=== PATIENT | male | born 1970 | race Caucasian/White ===

== ENCOUNTER 2023-12-12 20:45 | Emergency (ER) | payer OTHER, BC ==
[2023-12-12] MEDS: Ibuprofen 400 MG Tab PO ONE (21:06)
== END 2023-12-12 23:32 | disposition home or self-care (01) ==
LOC: FB.ED 20:45
DX: S82.831A Other fracture of upper and lower end of right fibula, initial encounter for closed fracture (principal); K21.9 Gastro-esophageal reflux disease without esophagitis; X50.1XXA Overexertion from prolonged static or awkward postures, initial encounter; Y93.01 Activity, walking, marching and hiking
CPT/HCPCS: 73610; 99283; A9270